=== PATIENT | male | born 1955 | race Caucasian/White ===

== ENCOUNTER 2019-05-11 14:06 | Inpatient (IN) | payer OTHER ==
[~2019-05-11] VITALS: Ht 185.4 cm; Wt 93.0 kg
--- NOTE | ~2019-05-11 | O ---
[facility] [place] [address] OPERATIVE REPORT Name: CLARISSA FERREIRA Room #: 406-P [facility] IN M.R.#: [id number] Admission: 05/11/19 Attend Phys: Hortensia Obando MD Discharge: Date of : 57 Report #: [id number] THIS REPORT FOR: cc: Manuel Cash MD, Kirk D. MD Dunfield, Jay A. MD ~ CC: Hortensia Cash DATE OF SERVICE: 05/15/2019 PREOPERATIVE DIAGNOSIS: Left malar abscess, nasal abscess. POSTOPERATIVE DIAGNOSIS: Left malar abscess, nasal abscess. PROCEDURE: Incision and drainage of abscess. SURGEON: Yaniv Cheema MD ANESTHESIA: General LMA. INDICATIONS: See H and P. FINDINGS: Small pocket of purulence was encountered in the left malar skin. I was able to communicate this with a previous left nasal dorsal skin abscess as well. This was already eroded through the skin anteriorly forming a small pinhole perforation of skin. TECHNIQUE: After obtaining consent, he was brought to the operating suite, appropriate timeout was performed. General LMA anesthesia was obtained, the bed was turned 90 degrees. Nose was prepped and draped with ophthalmic Betadine. First, I removed all the nasal packing from the right nasal septum as well as the left nasal vestibule. I first reinspected the areas and removed a little bit of devitalized subcutaneous tissue, although there was minimal noted. None of the areas of previous drainage had any active purulence. Using a small mosquito, I was able to tunnel underneath the subcutaneous tissue from the left nasal abscess cavity and easily entering the left malar skin abscess cavity, this area was widened bluntly. I was able to express a mild amount of purulence. I then thoroughly irrigated that pocket and then explored that pocket more inferiorly along the nasolabial fold; however, there was no further purulence encountered. I then irrigated both areas thoroughly with bacitracin solution, approximately 250 mL with all returning clear. Reinspected the areas for any devitalized tissue and there was none noted. I then cut a small piece of quarter inch iodoform gauze, placed this in the previous right septal abscess area pocket, which was very small, placing approximately an inch and a half. I [address] [address] OPERATIVE REPORT Name: CLARISSA FERREIRA Room #: 406-P [facility] IN [facility].#: [id number] Admission: 05/11/19 Attend Phys: Hortensia Obando MD Discharge: Date of : 57 Report #: [id number] then placed about 5 inches of iodoform gauze packing on the left nasal subcutaneous abscess cavity and communicated this with the left malar abscess pocket. I also placed a small 2-inch piece through the skin opening into the left malar pocket as well. The area was certainly coated with bacitracin ointment. He was turned back over to anesthesia where he was extubated and taken to recovery room in stable condition. ESTIMATED BLOOD LOSS: 10 mL. By: [id number] Yaniv Cheema MD /nt
[~2019-05-11 14:06] MED LIST: CARISOPRODOL 3350 M1 PO; MULTIVITAMINS PO; PROTONIX40 M2 PO; VITAMIN C120 GM PO
[2019-05-11 14:07] VITALS: BP 151/49
[2019-05-11] MEDS ORDERED: MELOXICAM15 MG PO (14:33)
[2019-05-11] MEDS ORDERED: LEVAQUIN 500 M500 M3 PO (14:33)
[2019-05-11] MEDS ORDERED: VITAMIN C1000 MG PO (14:35)
[2019-05-11] MEDS ORDERED: OMEPRAZOLE 20 M20 M1 PO (14:37)
[2019-05-11] MEDS ORDERED: TRIAMTERENE/HCT1 CA1 PO (14:42)
[2019-05-11 15:07] LABS: BASOPHILS 0.3 % (0.0-2.0); EOSINOPHILS 0.3 % (0.0-3.0); HEMATOCRIT 43.5 % (42.0-52.0); HEMOGLOBIN 14.4 gm/dL (14.0-18.0); MCH 31.5 pg (26.0-34.0); MCHC 33.1 g/dL (28.0-37.0); PLATELET COUNT 263 thou/uL (150-400); POLYS 85.4 % (36.0-66.0); RBC 4.58 mil/uL (4.50-6.00); RDW 13.1 % (10.5-14.5); WBC 17.6 thou/uL (4.0-11.0)
[2019-05-11 15:13] LABS: CALCIUM 10.2 mg/dL (8.5-10.1); CREATININE 1.1 mg/dL (0.7-1.3)
--- NOTE | 2019-05-11 16:45 | EKG ---
[facility] [place] [address] ELECTROCARDIOGRAM REPORT Name: MARIAM FERREIRAKg Nix Room #: [facility]#: [id number] Admission: 05/11/19 Attend Phys: Discharge: Date of : 57 Report #: [id number] THIS REPORT FOR: cc: Manuel Cash MD, Kirk D. MD Couchonnal, Luis F. MD ~ THIS REPORT FOR: //name// [facility] ED Test Date: 2019-05-11 Test Time: 14:26:58 Pat Name: CLARISSA FERREIRA Department: Room: Gender: Telemetry Rn: [facility] : 1955 Requested By: Hieu Ireland Order Number: [id number] MD: Rubio Man Measurements Intervals Lyons Rate: 79 P: 67 UT: 146 QRS: 55 QRSD: 92 T: 62 QT: 354 QTc: 406 Interpretive Statements Sinus rhythm No previous ECG available for comparison Electronically Signed On 05-11-2019 16:44:16 CDT by Rubio Man [email or web address] <ELECTRONICALLY SIGNED> By: Rubio Man MD 05/11/19 1644 D: [id number] Rubio Man MD /JANINE
[2019-05-11 17:52] VITALS: BP 120/76
[2019-05-11 17:58] VITALS: BP 132/82
[2019-05-11 18:15] VITALS: BP 150/88
--- NOTE | 2019-05-11 19:30 | NUR ---
PT ARRIVED FROM ER ALERT XS 4 ACCOMPANIED BY SPOUSE V.S 99.4 20 96 150/88 92 % RA. FLUIDS INFUSING THROUGH LEFT FA AND IV VANCO INFUSING. HAS NASAL CELLULITIS AND ABSCESS IN NOSE.NIGHT NURSE TO DO ASSESSMENT FOR PATIENT.
--- NOTE | 2019-05-12 01:56 | NUR ---
REMAINING ADMISSION COMPLETED. PT ALERT AND ORIENTED.UP AD RICHELLE IN ROOM. FEVER OF 99.4, GIVEN TYLENOL. PT ALSO GIVEN PRN FENTANYL FOR HIS FACIAL PAIN. PT HAS NO TROUBLE BREATHING OR SWALLOWING.SWELLING AND REDNESS TO FACE REMAINS THE SAME. CONTINUES ON IV ABTS. CALLS APPROPRIATELY.
[2019-05-12 07:30] VITALS: BP 152/87
--- NOTE | 2019-05-12 13:50 | P ---
[facility] [place] [address] PROCEDURE REPORT Name: JHONCLARISSA Dinah Room #: 406-P [facility] IN M.R.#: [id number] Admission: 05/11/19 Attend Phys: Hortensia Obando MD Discharge: Date of : 57 Report #: [id number] THIS REPORT FOR: cc: Manuel Cash MD, Kirk D. MD Dunfield, Jay A. MD ~ CC: Hortensia Cash DATE OF SERVICE: 05/11/2019 PROCEDURE NOTE After explaining the findings to the patient, I anesthetized inside the left naris with a 2 mL of 1% Xylocaine with 1:100,000 epinephrine on the lateral left vestibular wall. Using an #11 blade, I made a stab incision approximately a cm in length and then used a hemostat to open this wider immediately purulence was identified and suctioned away with a curved Colon tip suction. I then used the hemostat to expand the area and probe the abscess pocket to completion breaking up any septations. I then was able to place suction inside the nares and back in the area thoroughly. No further purulence was noted. I then compressed both the right and left sides of the nasal dorsum. No further purulence was expressed, none was expressed from the nasal tip as well. At that point, I placed a piece of 1/4-inch iodoform gauze, cut in half and then this was placed inside the abscess cavity. The patient tolerated the procedure well. <ELECTRONICALLY SIGNED> By: Yaniv Cheema MD 05/12/19 1350 1654 [id number] Yaniv Cheema MD /nt
--- NOTE | 2019-05-12 13:50 | HC ---
[facility] [place] [address] CONSULTATION Name: JHONCLARISSA E Room #: 406-P [facility] IN M.R.#: [id number] Admission: 05/11/19 Attend Phys: Hrotensia Obando MD Discharge: Date of : 57 Report #: [id number] THIS REPORT FOR: cc: Manuel Cash MD, Kirk D. MD Dunfield, Jay A. MD ~ CC: Hortensia Cash DATE OF SERVICE: 05/11/2019 REASON FOR CONSULTATION: Nasal lesion. HISTORY OF PRESENT ILLNESS: The patient is a 64-year-old gentleman originally was first present to my office today for possible nasal lesion. Instead he presented to the Emergency Department, Dr. 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 He saw his primary care doctor on Wednesday, was prescribed Levaquin and thought it was getting better; however, in the last day or so, it has gotten worse, he has had more pain and swelling. He does not believe he has had any fever. Denies any headaches. He has noted nasal airway obstruction. He has a long history of deviated septum with previous nasal airway obstruction on the right side, but has never had a repair to that area. While in the Emergency Room, he was given a course of IV clindamycin. He was found to be not toxic. However, he was noted to have an elevated white blood cell count. I was asked to see the patient for further evaluation. ALLERGIES: NOTED FOR AN ALLERGY TO PENICILLIN WHICH CAUSES AN ANAPHYLACTIC REACTION. MEDICATIONS ON ADMISSION: Include Levaquin 500 mg once a day, meloxicam 15 mg a day, ascorbic acid 1000 mg a day, omeprazole 20 mg a day, hydrochlorothiazide and triamterene capsules 2 capsules once a day, Carisoprodol 350 mg a day. PAST MEDICAL AND SURGICAL HISTORY: Noted for asthma, gastroesophageal reflux disease, previous history of hernia repair. SOCIAL HISTORY: He is a nonsmoker. REVIEW OF SYSTEMS: Notable mainly for the pain in the mid face and difficulty breathing through his nasal passages. PHYSICAL EXAMINATION: [facility] [address] [place] [address] CONSULTATION Name: MARIAM FERREIRAKg Nix Room #: 406-P [facility] IN ..#: [id number] Admission: 05/11/19 Attend Phys: Hortensia Obando MD Discharge: Date of : 57 Report #: [id number] GENERAL: He appears mildly overweight. HEENT: There is obvious erythema involving the mid face involving the entire nares spreading to the left malar region with minimal edema. There is some peeling of the nasal skin noted. The right malar area is fairly clear with only slight erythema. There is no bulging of the columella. There is no bulging of the lower lip. Examination of the oral cavity was unremarkable. There is some poor dentition, but otherwise unremarkable. There is no evidence of any dental trauma. The gum layer is unremarkable. The upper lip is not edematous. Palpation of the floor of the nose from the upper mouth was unremarkable. The columella is soft. There was an obvious right-sided nasal septal deflection noted severe and nearly totally obstructing the right nasal passageway. The septum itself was not edematous and neither is the columella. The right lateral wall is erythematous, but not edematous. The left lateral wall has significant edema bulging towards the midline and is fluctuant to palpation. This does spread towards the malar area on the left side, but this area is just edematous, but not fluctuant. There is no palpable adenopathy in the neck. ASSESSMENT: History of facial cellulitis/erysipelas with probable left intranasal abscess. RECOMMENDATIONS: See procedure note. I did drain some purulent material from the incision area, recommended because of the degree of infection and the elevated white count despite the fact he is not toxic and be admitted for IV antibiotics. I agree with the Emergency Room physician's choice for clindamycin, would continue this on an IV basis for at least the next 24 hours. I will present tomorrow to recheck the area and see if any needs to be redrained. Would anticipate once the IV antibiotics start to work that the infection should dissipate rapidly if not a CT scan be necessary to ascertain if further surgical intervention is necessary. Thank you for asking us to consult on this patient. I will follow along with you. <ELECTRONICALLY SIGNED> By: Yaniv Cheema MD 05/12/19 1350 1654 [id number] Yaniv Cheema MD /juan manuel
[2019-05-12 14:59] VITALS: BP 131/81
[2019-05-12 19:33] VITALS: BP 136/80
--- NOTE | 2019-05-13 04:08 | NUR ---
PATIENT ALERT AND ORIENTED X4. UP ADLIB IN ROOM. IVPB INFUSED W/O COMPLICATION. COOPERATIVE WITH CARE. NOSE AND FACE UNDER EYES REMAIN WITH EDEMA, ALSO BRUISING. C/O PAIN AND MEDICATED X2 AT TIME OF NOTE WITH GOOD RESULTS. PATIENT STATED HE HAD NOT SLEPT IN TWO DAYS, HOWEVER, HE WAS ABLE TO GET SOME SLEEP DURING THE NIGHT. WILL MONITOR.
[2019-05-13 05:59] LABS: ABSOLUTE NEUTROPHILS 10.6 thou/uL (1.4-8.2); BASOPHILS 1.1 % (0.0-2.0); EOSINOPHILS 0.2 % (0.0-3.0); HEMATOCRIT 37.3 % (42.0-52.0); HEMOGLOBIN 12.6 gm/dL (14.0-18.0); LYMPHOCYTES 7.9 % (24.0-44.0); MCH 31.9 pg (26.0-34.0); MCHC 33.7 g/dL (28.0-37.0); MCV 94.8 fL (80.0-100.0); MONOCYTES 10.2 % (1.0-8.0); PLATELET COUNT 252 thou/uL (150-400); POLYS 80.6 % (36.0-66.0); RBC 3.94 mil/uL (4.50-6.00); RDW 13.2 % (10.5-14.5); WBC 13.1 thou/uL (4.0-11.0)
[2019-05-13 06:10] LABS: ALBUMIN 2.8 g/dL (3.4-5.0); CALCIUM 9.1 mg/dL (8.5-10.1); CREATININE 0.9 mg/dL (0.7-1.3); POTASSIUM 4.3 mmol/L (3.5-5.1); TOTAL BILIRUBIN 0.4 mg/dL (<0.1-1.0); TOTAL PROTEIN 7.5 g/dL (6.4-8.2)
[2019-05-13 08:54] VITALS: BP 134/92
[2019-05-13 16:54] VITALS: BP 174/99
--- NOTE | 2019-05-13 17:52 | NUR ---
ASSUMED CARE OF PATIENT AT 0715, PATIENT ALERT AND ORIENTED X 4. UP AD RICHELLE IN ROOM, AMBULATES IN HALLWAYS. PATIENT DENIES PAIN DURING ASSESSMENT, BUT C/O PAIN WITH NOSE/FACIAL AREA, RECEIVED FENTANYL 50MCG IV. DR MCDONALD HERE THIS AM, PATIENT NPO FOR SURGERY THIS AFTERNOON/I&D NASAL ABCESS. PATIENT VSS THIS AM. LEFT THE UNIT FOR OR AT 1500. LEFT FOREARM IV IN PLACE. REPORT GIVEN AT 1635 FROM LUPE/TANK. NEW IV LEFT WRIST PLACE BY DR PRINCE. NASAL PACKING/IODOFORM, DO NOT REMOVE THE DRESSING, ONLY REINFORCE. PATIENT C/O PAIN UPON ARRIVL TO THE UNIT, FENTANYL 50MCG IV GIVEN AT 1800. FAMILY AT BEDSIDE. WILL CONTINUE TO MONITOR.
[2019-05-13 19:33] VITALS: BP 147/77
--- NOTE | 2019-05-14 03:39 | NUR ---
PATIENT ALERT AND ORIENTED X4. UP ADLIB IN ROOM AND HALLWAY. MEDICATED WITH TYLENOL AND FENTANYL WITH GOOD RESULTS. PATIENT ABLE TO SLEEP. DRESSING TO NOSE HAS NO CHANGE OF DRAINAGE FROM BEGINNING OF SHIFT. COOPERATIVE WITH CARE. WILL MONITOR.
[2019-05-14 07:15] VITALS: BP 126/82
[2019-05-14 07:27] VITALS: BP 126/82
[2019-05-14 11:27] VITALS: BP 126/82
--- NOTE | 2019-05-14 13:41 | NUR ---
PT CARE ASSUMED AT 0700. A&Ox4. PT UP AT RICHELLE IN ROOM AND HALLWAY. PO PAIN MEDICATION ADDED TO BETTER MANAGE PAIN AND NOT HAVE TO UTILIZE IV NARCOTICS. PLEASE ONLY USE FENTANYL FOR BREAKTHROUGH PAIN. STOOL SOFTNER ADDED PER PT REQUEST. WOUND CARE ORDERS IN PER DR. MCDONALD. MRSA SWAB CANCELLED TO TO HAVING A AEROBIC AND ANAEROBIC CLUTURE ALREADY BEING PROCESSED. PT STATED IV ON L.WRIST WAS PAINFUL AND HURT WHEN FLUIDS INFUSING. IV REMOVED AND NEW IV PLACED ON R. FOREARM. NO PAIN WITH THIS IV. IN ROOM. CALL LIGHT IN REACH. PT IS ENCOURAGE TO INCREASE HIS FOOD INTAKE. WILL CONTINUE TO MONITOR. IV SALINE LOCKED
[2019-05-14 16:30] VITALS: BP 129/67
[2019-05-14 19:53] VITALS: BP 142/79
--- NOTE | 2019-05-15 03:56 | NUR ---
PATIENT ALERT AND ORIENTED X4. UP ADLIB IN ROOM AND HALLWAY. MEDICATED FOR FACIAL PAIN WITH GOOD RESULTS. THIS NURSE GENTLY CLEANED PATIENTS FACE AND REMOVED AND REPLACED TAPE HOLDING NOSTRIL PACKING BACK OFF OF HIS MUSTACHE. OINTMENT APPLIED AT EDGE OF NOSTRILS AND ACROSS BRIDGE OF NOSE PER ORDER. AM NURSE STATED THAT DISPLAY ASSOCIATE WAS UNABLE TO LOCATE PEROXIDE FOR CLEANING OF WOUND PER ORDER. NO BM AT TIME OF NOTE. COOPERATIVE WITH CARE, HOWEVER, GETTING RESTLESS. WILL MONITOR.
[2019-05-15 08:33] VITALS: BP 119/72
--- NOTE | 2019-05-15 10:36 | NUR ---
INITIAL ASSESSMENT: SW reviewed chart and spoke with nursing. Pt was admitted from home due to facial cellulitis. Pt currently off the unit in the OR for I/D of the left malar skin abscess. ENT/wound/ID consulted and following. Pt is currently on IV abx. Per chart, pt is alert/orientated x 4. Pt lives at home with his . Pt does not have health insurance. [employer] to screen and follow up with pt if indicated. SW is following to assist as needed with discharge planning.
[2019-05-15 16:25] VITALS: BP 135/63
--- NOTE | 2019-05-15 20:06 | NUR ---
ASSUMED CARE OF PATIENT AT 0715, PATIENT ALERT AND ORIENTED X 4. UP AD RICHELLE. PATIENT DENIES PAIN THIS AM, HAD PAIN MEDS AROUND 0600. DR MCDONALD HERE THIS AM, PATIENT NPO PRIOR TO BREAKFAST FOR SURGERY AROUND 1100. PATIENT HAS RIGHT FOREARM IV IN PLACE. VSS THIS AM. I&D OF NASAL AREA DONE WITH PACKING TO NASAL AREA. C/O CONSTIPATION, THIS RN NOTIFIED DR SCHMITZ OF CONSTIPATION, NEW ORDERS IN FOR BOWELS, BISACODYL 5 MG 1 TABLET GIVEN THIS SHIFT. WILL CONTINUE TO MONITOR.
[2019-05-15 20:41] VITALS: BP 125/59
--- NOTE | 2019-05-16 04:19 | NUR ---
RECIEVED CARE OF THIS PATIENT AT 1900. PATIENT ALERT AND ORIENTED X4. UP IN HALLS. DRESSING ON NOSE AND PACKING IN NOSE INTACT. CLEANED WITH PEROXIDE AND PUT OINTMENT ON X2 THIS SHIFT. IV IN RFA PATENT. C/O MILD PAIN IN NOSE AND A HEADACHE. MED GIVEN. SLEPT MOST OF SHIFT.
[2019-05-16 09:12] VITALS: BP 139/68
--- NOTE | 2019-05-16 13:15 | NUR ---
SW reviewed chart and spoke with nursing and attending physician. Pt had I&D of facial cellulitis/nasal abscess yesterday. Pt remains on IV abx. Pt screened by [employer] and is not eligible for Medicaid. Discuss with ID physician. Pt may need IV abx at time of discharge. SALTY is following to assist as needed with discharge planning.
--- NOTE | 2019-05-16 16:26 | NUR ---
ASSUMED PATIENT CARE AT 0700. PATIENT IS AOX4 AND UP AMBULATING IN THE ROOM AND DOING EXERCISES. WOUND CARE DONE TO PATIENTS NOSE WITH DR. SALCIDO PRESENT AT THE BEDSIDE. PATIENT WAS PLACED IN ISOLATION DUE TO MRSA COMING BACK IN THE RESULTS, PATIENT UNDERSTOOD. PATIENT C/O PAIN, PRN PAIN MEDICATIONS GIVEN AND HELPING. PATIENT WAS ABLE TO TAKE A SHOWER TODAY. PATIENT WAS ABLE TO FINALLY HAVE A VERY SMALL BM TODAY BUT NOTHING LIKE HE NORMALLY WOULD. PLANS ARE TO REMOVE SOME PACKING TOMORROW AT THE BEDSIDE. PATIENT DOES WELL CALLING FOR HELP WHEN NEEDED AND KNOWS HE IS UNABLE TO LEAVE HIS ROOM AT THIS TIME. CALL LIGHT WITHIN REACH.
[2019-05-16 19:23] VITALS: BP 123/73
--- NOTE | 2019-05-16 19:43 | NUR ---
I AGREE WITH NURSING ASSESSMENT AND NURSING NOTE DONE BY WALTER/EUGENIO.
--- NOTE | 2019-05-17 04:12 | NUR ---
RECIEVED CARE OF THIS PATIENT AT 1900. PATIENT ALERT AND ORIENTED X4. REMAINS IN ISO FOR MRSA IN WOUND ON NOSE. WOUND CARE DONE ON NOSE X2. CLEANED WITH PEROXIDE AND THEN COVERED WITH OINTMENT. PATIENT UP AD RICHELLE IN ROOM. IV IN RFA PATENT BUT BEGINNING TO BURN WITH MEDS. WILL REPLACE WHEN PATIENT WAKES. PATIENT C/O PAIN, MED GIVEN WITH GOOD RESULTS. SLEPT MOST OF THE NIGHT.
[2019-05-17 07:49] VITALS: BP 131/73
[2019-05-17 10:33] LABS: ABSOLUTE NEUTROPHILS 5.8 thou/uL (1.4-8.2); BASOPHILS 0.5 % (0.0-2.0); EOSINOPHILS 1.4 % (0.0-3.0); HEMATOCRIT 36.8 % (42.0-52.0); HEMOGLOBIN 12.2 gm/dL (14.0-18.0); LYMPHOCYTES 13.7 % (24.0-44.0); MCH 31.6 pg (26.0-34.0); MCHC 33.1 g/dL (28.0-37.0); MCV 95.5 fL (80.0-100.0); MONOCYTES 7.1 % (1.0-8.0); PLATELET COUNT 377 thou/uL (150-400); POLYS 77.3 % (36.0-66.0); RBC 3.85 mil/uL (4.50-6.00); RDW 13.4 % (10.5-14.5); WBC 7.5 thou/uL (4.0-11.0)
[2019-05-17 10:38] LABS: CALCIUM 9.4 mg/dL (8.5-10.1)
--- NOTE | 2019-05-17 12:52 | NUR ---
SW reviewed chart and spoke with nursing and attending physician. Discharge home is anticipated for tomorrow on PO abx. Pt does not have health insurance and does not qualify for Medicaid. Pt will discharge home with family. SALTY is following to assist as needed with discharge planning.
[2019-05-17 16:15] VITALS: BP 132/76
--- NOTE | 2019-05-17 17:23 | NUR ---
ASSUMED CARE OF PT AT 0700. PT IS AOX4, VSS, REPORTS PAIN IN LEFT SIDE OF NASAL AREA D/T ABSESS. PT RECEIVED ACETAMINOPHEN ORDERED AND REPORTS HE IS TRYING NOT TO TAKE THE NARCOTIC D/T CONSTIPATION. PT RECEIVED SCHEDULED AND PRN MEDS TO HELP WITH A BM. PT TOLERATING DIET WITHOUT N/V. IV PATENT IN LEFT FA. ANTIBIOTIC THERAPY RECEIVED, REMAINS ON CONTACT ISOLATION FOR MRSA IN NARES. CALL LIGHT IN REACH, WILL CONTINUE TO MONITOR.
[2019-05-17 19:38] VITALS: BP 139/68
--- NOTE | 2019-05-18 02:56 | NUR ---
RECIEVED CARE OF THIS PATIENT AT 1900. PATIENT ALERT AND ORIENTED X4. PATIENT C/O BEING CONSTIPATED AND NOT HAVING A STOOL FOR 6 DAYS. COMMERCIAL PHOTOGRAPHER WAS CALLED AND AN ORDER FOR MAG CITRATE OBTAINED. GIVEN IN 2 DOSES WITH SMALL RESULTS. WOUND CARE WAS DONE ON NOSE X1. PATIENT WANTS TO WAIT UNTIL LATER TO DO SECOND WOUND CARE. PATIENT UP AD RICHELLE IN ROOM. REMAINS IN ISOLATION FOR MRSA IN THE WOUND. C/O PAIN X2, TYLENOL GIVEN. SLEPT MOST OF NIGHT.
[2019-05-18 07:00] VITALS: BP 118/69
--- NOTE | 2019-05-18 10:12 | NUR ---
Received consult to arrange outpatient IV infusion: Vancomycin 1.5gm BID. SALTY met with pt at bedside to discuss discharge plan. Pt thought he would be able to discharge home on PO abx. Pt states if he has to do IV infusion, he would prefer to do it as an outpatient. Pt does not have health insurance and does not qualify for Medicaid. SALTY discussed with attending physician. Awaiting final recommendataions from ID. SALTY is follwoing to assist as needed with discharge planning.
--- NOTE | 2019-05-18 14:40 | NUR ---
Nutrition: pt admitted with MRSA soft tissue infection of nose, S/P I&D. Will require outpatient IV antibiotics due to extensive infection. Seen for LOS. Pt eating well on regular diet. Aware of option to order meals but is hoping to be D/C today. Noted bowel regimen for constipation/No BM x 6 days. Likely narcotic related. Encouraged adequate sources of fiber and fluid. Noted BG 217 with no hx of DM. No accuchecks being taken. May consider obtaining A1C. Consider low nutrition risk otherwise.
[2019-05-18 15:30] VITALS: BP 119/72
[2019-05-18 19:45] VITALS: BP 122/56
--- NOTE | 2019-05-19 04:12 | NUR ---
PATIENT ALERT AND ORIENTED X4. UP ADLIB IN ROOM. MEDICATED X1 WITH TYLENOL AT TIME OF NOTE. REMAINS ON ISOLATION FOR MRSA IN NARES. SALINE LOCK PATENT FOR IV ABX. POSSIBLE DISCHARGE TO HOME WITH PO ABX TODAY. WILL HAVE OUTPATIENT INFUSION SCHEDULED. WOUND TO NOSE TREATED PER ORDER. RESTING QUIETLY AT TIME OF NOTE. WILL MONITOR.
[2019-05-19 09:32] VITALS: BP 124/71
--- NOTE | 2019-05-19 10:14 | O ---
[facility] [place] [address] OPERATIVE REPORT Name: CLARISSA FERREIRA Room #: 406-P ADM IN M.R.#: [id number] Admission: 05/11/19 Attend Phys: Hortensia Obando MD Discharge: Date of : 57 Report #: [id number] THIS REPORT FOR: cc: Manuel Cash MD, Kirk D. MD Dunfield, Jay A. MD ~ CC: Hortensia Cash DATE OF SERVICE: 05/13/2019 PREOPERATIVE DIAGNOSIS: Nasal abscess. POSTOPERATIVE DIAGNOSIS: Nasal abscess. PROCEDURE: Incision and drainage to nasal abscess. SURGEON: Yaniv Cheema MD ANESTHESIA: General LMA. INDICATIONS: See the patient's progress note. FINDINGS: Previous incision in the left nasal passageway was still partially patent. Purulence was exuded from the area. There was a large pocket involving the left nasal dorsal subcutaneous space, tracking superiorly over the nasal bone with a self-made exit wound on the left nasal dorsum side wall near midline. There was also a small septal abscess on the right inferior side at the caudal edge of the septum. This did communicate superiorly along the right side of the quadrangular cartilage and communicated over the cranial edges to the left subcutaneous abscess pocket. TECHNIQUE: After obtaining consent, he was brought to the operating suite, appropriate timeout was performed. General LMA anesthesia was obtained. The bed was turned 90 degrees. Nose was prepped and draped with Betadine. A 2 mL of 1% Xylocaine with 1:100,000 epinephrine was injected on the left nasal passageway along the left septum and the right inferior septum. The previously made incision was still patent and was widened slightly with a hemostat. Purulence immediately exuded and cultures were taken x 2. I then enlarged the incision anteriorly to approximately 2 cm in length. I was able to easily use the hemostat to explore this abscess pocket and followed it superiorly with my tip of my hemostat exiting through the self-made exiting wound at the superior portion of the nasal dorsum. I then explored more anteriorly towards the nasal bridge, but this did not climb over to the right [facility] [address] [place] [address] OPERATIVE REPORT Name: CLARISSA FERREIRA Room #: 406-P [facility] IN .R.#: [id number] Admission: 05/11/19 Attend Phys: Hortensia Obando MD Discharge: Date of : 57 Report #: [id number]. I then went laterally towards the malar tissues; however, this ended short of the malar fatty tissue plane, proceeding anteriorly along the lower lateral cartilage. There was no involvement and then towards the columella there was no involvement. I then thoroughly irrigated this area, noting that the bacitracin irrigation to come out the superior perforation and through the skin. I then made a small stab incision on the right inferior septum and immediately encountered purulence, so I made a right hemitransfixion incision and used hemostat to probe this area. This was a fairly small abscess pocket, but it did climb along the quadrangular cartilage superiorly. It did not seem to go over superiorly to the midline, but then proceeded more towards the columella and the tip and wrapped around superiorly. I was unable to irrigate this area thoroughly and noted the effluent was coming out the left side as well. After irrigating multiple times effluent finally returned clear. I reinspected those areas and removed a little bit of devitalized tissue back to bleeding tissue. I then took 1/4 inch iodoform gauze and placed it in through and through from the left inferior to the left superior opening. I then back packed the inferior aspect and left a 2-inch tail on the inferior aspect. I also packed the right septal part and left a small tail out. These tails were then brought over the nasal dorsum and taped with Steri-Strips. At this point, the wounds were fully addressed. The nasopharynx was cleared free of secretions. He was turned back over to anesthesia where he was lightened, extubated and taken to recovery room in stable condition. ESTIMATED BLOOD LOSS: 10 mL. <ELECTRONICALLY SIGNED> By: Yaniv Cheema MD 05/19/19 1014 1617 [id number] Yaniv Cheema MD /nt
--- NOTE | 2019-05-19 11:19 | HC ---
[facility] [place] [address] CONSULTATION Name: CLARISSA FERREIRA Dinah Room #: 406-P ADM IN M.R.#: [id number] Admission: 05/11/19 Attend Phys: Hortensia Obando MD Discharge: Date of : 57 Report #: [id number] THIS REPORT FOR: cc: Manuel Cash MD, Kirk D. MD Barry, Joseph W. MD ~ CC: Hortensia Cash DATE OF SERVICE: 05/12/2019 INFECTIOUS DISEASE CONSULTATION ATTENDING PHYSICIAN: Dr. Obando. REASON FOR EVALUATION: Facial cellulitis with nasal abscess. HISTORY OF PRESENT ILLNESS: Chart reviewed, patient examined. This is a 64-year-old gentleman with known history of asthma, who developed a lesion in the paranasal area within the last several days. It is not entirely clear as to the inciting event. He noted progressive inflammation including swelling, erythema favor the lateral left side of the nose involving the medial cheek as well, who was referred to ENT; however, as he was making his way, he developed some lightheadedness, diaphoresis and weakness. He was evaluated. Initial white count was elevated at 17.6. Lactic acid is 1.7. CRP elevated at 254. Blood cultures collected at the time of admission are sterile thus far. He did undergo a procedure involving the left lateral vestibular wall and was encountered some purulence at that time, so underwent suction and has been placed empirically on combination therapy with cefepime, clindamycin and vancomycin. He is not encephalopathic. Denies any pulmonary or gastrointestinal related complaints. ALLERGIES: PENICILLIN, describes as lockjaw. CURRENT MEDICATIONS: Include ascorbic acid, pantoprazole, mupirocin topically to the nasal site, cefepime, vancomycin and clindamycin. PAST MEDICAL HISTORY: Includes history of asthma, reflux, previous hernia repair. SOCIAL HISTORY: Smokes 1-1/2 packs a day, drinks beers on a daily basis and does use marijuana as well. FAMILY HISTORY: Noncontributory. [facility] [address] [place] [address] CONSULTATION Name: JHONCLARISSA Room #: 406-P [facility] IN M.R.#: [id number] Admission: 05/11/19 Attend Phys: Hortensia Obando MD Discharge: Date of : 57 Report #: [id number] REVIEW OF SYSTEMS: As above. PHYSICAL EXAMINATION: GENERAL: He is alert, cooperative, appropriate, in [id number] distress. VITAL SIGNS: Temperature 99.3, pulse 76, respirations 18, blood pressure 131/81. SKIN: Warm, dry, no rashes. HEENT: Normocephalic. Extraocular muscles intact. Does have a clear edema with erythema involving the extent of the nose, somewhat asymmetrical, involves in the left side, in the palpebral site as well as mildly tender. There is no overt drainage at this point. He is not overtly dyspneic. LUNGS: Generally diminished, otherwise clear. HEART: Regular. I do not appreciate a murmur. ABDOMEN: Soft, nontender, nondistended. EXTREMITIES: No cyanosis. GENITOURINARY: Deferred. RECTAL: Deferred. LABORATORY DATA: Initial CBC: White count of 17.6, H and H 14.4 and 43.5, platelets of 263. Electrolytes: Sodium 133, potassium 4.0, chloride 93, bicarbonate is 30, anion gap of 10, BUN and creatinine 19 and 1.1, calcium is 10.2. Lactic acid is 1.7. CRP of 254. ASSESSMENT AND PLAN: Facial skin and soft tissue inflammatory eruption with skin and soft tissue infection and likely nasal abscess. We will continue empiric antimicrobial therapy, see how he is responding. Noted plans to reevaluate possible further imaging, may need additional procedure as per the patient's ____ as dictated by the clinical course per the financial accounting manager. We will adjust therapy to some extent and go ahead and do an MRSA surveillance, which may give us a clue as well. <ELECTRONICALLY SIGNED> By: Kane Aggarwal MD 05/19/19 1119 1617 11 Kane Aggarwal MD /nt
[2019-05-19] MEDS ORDERED: ACETAMINOPHEN325 M1 PO (13:31)
[2019-05-19] MEDS ORDERED: LINEZOLID600 MG PO (13:31)
[2019-05-19] MEDS ORDERED: DEEP SEA NASAL44 M1 NASAL (13:31)
[2019-05-19] MEDS ORDERED: MIRALAX17 GM PO (13:31)
[2019-05-19] MEDS ORDERED: MUPIROCIN22 GM NASAL (13:31)
[2019-05-19 14:20] VITALS: BP 124/71
--- NOTE | 2019-05-19 14:22 | NUR ---
DISCHARGE NOTE: SW reviewed chart and spoke with nursing, ID physician and attending physician. Pt is medically stable for discharge home today. Script written for PO Zyvox: 600mg BID for 10 days. SW took script to [facility]. Total for med is $47.26. Case Mgmt to vouch for script. Director of Case Mgmt approved. Pt to pick up and delivery driver script when discharged. Other new medications are over the counter. No additional SW needs identified at this time, but is available to assist should needs arise.
--- NOTE | 2019-05-19 15:02 | NUR ---
ASSUMED PT CARE AT 0700. PT IS AOX4, VSS, PAIN IN NOSE 3/10 CONTROLLED WITH ACETAMINOPHEN. PT IS GOOD SPIRITS HE IS GOING HOME. PT RECEIVED [facility]AP[facility]. PT RECEIVED DISCHARGE INSTRUCTIONS, IV REMOVED, PT WAS WHEELED DOWN TO [facility] TO LAST [facility] ANTIBIOTIC. THEN WILL TAKE HIM HOME.
[2019-05-19 22:07] LABS: GLYCOHEMOGLOBIN (HGB A1C) 5.6 % (4.8-5.6)
== END 2019-05-19 15:09 | disposition home or self-care (01) | DRG 580 ==
LOC: ER 14:06 → 4N 18:10
PROVIDERS: Emergency Medicine; Specialist; ADMIT Hospitalist
PROC: 099K7ZZ Drainage of Nasal Mucosa and Soft Tissue, Via Natural or Artificial Opening (ICD-10-PCS; principal; 2019-05-11)
PROC: 0J910ZZ Drainage of Face Subcutaneous Tissue and Fascia, Open Approach (ICD-10-PCS; 2019-05-15)
DX: L03.211 Cellulitis of face (principal); E87.1 Hypo-osmolality and hyponatremia; J32.9 Chronic sinusitis, unspecified; E87.8 Other disorders of electrolyte and fluid balance, not elsewhere classified; I10 Essential (primary) hypertension; K21.9 Gastro-esophageal reflux disease without esophagitis; B95.62 Methicillin resistant Staphylococcus aureus infection as the cause of diseases classified elsewhere; Z88.0 Allergy status to penicillin
CPT/HCPCS: 10091; 50010; 50101; 50386; 50398; 62110; 62900; 64037; 70005